=== PATIENT | male | born 1975 | race Two or more races ===

== ENCOUNTER → 2017-04-12 | Outpatient (CLI) | payer OTHER ==
--- NOTE | 2017-04-12 16:58 | RAD ---
CT of the abdomen and pelvis without contrast, 04/12/2017: History: Left flank pain and hematuria Noncontrast scans were obtained as requested utilizing the renal stone protocol. This is a limited study for evaluation of the possibility of urinary tract calculi. No intrarenal calculi are identified. The renal collecting systems and ureters are not dilated. No ureteral calculus is identified. Mild diffuse thickening of the bladder garcia is probably secondary to lack of bladder distention. There is slight superior tethering of the anterior/superior aspect of the urinary bladder at the level of the median umbilical ligament. A significant urachal cyst or diverticulum is not identified. The prostate gland measures 4.2 cm in width and contains a single calcification. The unopacified liver is unremarkable. No gallbladder abnormality is seen. The pancreas is unremarkable. There are numerous calcified splenic granulomata. The spleen is of normal size. The abdominal aorta is unremarkable. No abdominal or pelvic adenopathy is evident. The bowel loops are not dilated. The appendix is visualized and shows no abnormality. No free fluid or free air is evident in the abdomen or pelvis. IMPRESSION: 1. No urinary tract calculi are identified. 2. Mild diffuse bladder wall thickening is probably related to lack of bladder distention. Infection cannot be excluded. PQRS Compliance Statement: One or more of the following individualized dose reduction techniques were utilized for this examination: 1. Automated exposure control 2. Adjustment of the mA and/or kV according to patient size 3. Use of iterative reconstruction technique
== END | disposition home or self-care (01) ==
LOC: CT 15:56
PROVIDERS: ATTEND Nurse Practitioner Family
DX: N42.89 Other specified disorders of prostate (principal); R31.9 Hematuria, unspecified; R10.9 Unspecified abdominal pain
CPT/HCPCS: 74176

== ENCOUNTER → 2017-04-21 | Outpatient (CLI) | payer OTHER ==
--- NOTE | 2017-04-21 13:32 | RAD ---
3 views of the lumbar spine 04/21/2017 Indication: Low back pain. Left hip pain. Comparison study: None Findings: No evidence of acute fracture or alignment abnormality is identified. Vertebral body heights are maintained. Lung minimal degenerative disc space narrowing is seen in the inferior thoracic spine at the lumbosacral junction. Paraspinal soft tissues are unremarkable. Impression: Minimal degenerative changes as described without evidence of acute fracture or alignment abnormality.
== END | disposition home or self-care (01) ==
LOC: DXRADRC 12:51
PROVIDERS: ATTEND Nurse Practitioner Family
DX: M47.896 Other spondylosis, lumbar region (principal)
CPT/HCPCS: 72100

== ENCOUNTER → 2018-12-02 | Outpatient (CLI) | payer OTHER ==
--- NOTE | 2018-12-02 13:12 | RAD ---
ANKLE RIGHT 3V History: Right ankle pain for one day, twisted right ankle Comparison: None. Findings: 3 views of the right ankle are submitted. No acute fracture or dislocation is identified by radiographs. Impression: 1. No acute osseous abnormality is identified by radiographs. Electronically signed by: Robert Lenz MD (12/02/2018 1:09 PM) [facility]
== END | disposition home or self-care (01) ==
LOC: RAD 12:17
PROVIDERS: ATTEND Physician Assistant Medical
DX: S93.401A Sprain of unspecified ligament of right ankle, initial encounter (principal); X58.XXXA Exposure to other specified factors, initial encounter; Y93.89 Activity, other specified; Y92.89 Other specified places as the place of occurrence of the external cause; Y99.8 Other external cause status
CPT/HCPCS: 73610